=== PATIENT | female | born 1960 | race Two or more races ===

== ENCOUNTER 2018-06-04 13:28 | Outpatient (CLI) | payer OTHER ==
[~2018-06-04 13:28] MED LIST: ADULT ASPIRIN81 MG PO; AVAPRO75 MG PO; CARVEDILOL12.5 MG PO; COZAAR50 MG PO; CYMBALTA30 MG PO; DOLOGESIC 500-1 EACH PO; EXFORGE 5-160 M1 TAB PO; GLUCOPHAGE XR500 MG PO; HUMALOG MIX 75/23 ML SQ; HYZAAR 100/25 T1 TAB PO; LEVOTHROID25 MCG PO; LEVOXYL88 MCG PO; RELAFEN500 MG PO; SIMVASTATIN40 MG PO; SYNTHROID50 MCG PO; VERAPAMIL HCL120 M2 PO; ZETIA10 MG PO
== END 2018-06-04 13:36 | disposition home or self-care (01) ==
LOC: SONOGRAMA 13:28
DX: N60.11 Diffuse cystic mastopathy of right breast (principal); N60.12 Diffuse cystic mastopathy of left breast

== ENCOUNTER → 2018-06-15 | Outpatient (CLI) | payer OTHER | END | disposition home or self-care (01) | LOC: NUCLEAR 09:00 | DX: M79.7 Fibromyalgia (principal) | CPT/HCPCS: 78306; A9503 ==

== ENCOUNTER 2018-07-09 11:05 | Outpatient (CLI) | payer OTHER | END 2018-07-09 11:32 | disposition home or self-care (01) | LOC: TOM 11:05 | DX: E11.9 Type 2 diabetes mellitus without complications (principal); E07.89 Other specified disorders of thyroid; K57.92 Diverticulitis of intestine, part unspecified, without perforation or abscess without bleeding; I10 Essential (primary) hypertension; R10.84 Generalized abdominal pain; I51.9 Heart disease, unspecified ==

== ENCOUNTER 2018-07-19 12:06 | Emergency (ER) | payer OTHER ==
[~2018-07-19] VITALS: Ht 149.9 cm; Wt 77.1 kg
[2018-07-19] MEDS ORDERED: COZAAR25 MG (12:17)
[2018-07-19] MEDS ORDERED: LEVEMIR100 UNIT/1 (12:17)
[2018-07-19] MEDS ORDERED: PROVERA2.5 MG (12:17)
== END 2018-07-19 15:05 | disposition home or self-care (01) ==
LOC: ER 12:06
DX: M17.12 Unilateral primary osteoarthritis, left knee (principal); M25.562 Pain in left knee

== ENCOUNTER 2018-07-29 11:13 | Outpatient (CLI) | payer OTHER ==
[~2018-07-29 11:13] MED LIST changes: +COZAAR25 MG; +LEVEMIR100 UNIT/1; +PROVERA2.5 MG
== END 2018-07-29 11:33 | disposition home or self-care (01) ==
LOC: MRI 11:13
DX: M25.462 Effusion, left knee (principal)
CPT/HCPCS: 73718

== ENCOUNTER 2018-07-31 11:52 | Outpatient (CLI) | payer OTHER | END 2018-08-03 16:42 | disposition home or self-care (01) | LOC: SONOGRAMA 11:52 | DX: E04.2 Nontoxic multinodular goiter (principal) ==

== ENCOUNTER 2018-08-10 13:15 | Outpatient (CLI) | payer OTHER | END 2018-08-10 13:22 | disposition home or self-care (01) | LOC: NUCLEAR 13:15 | DX: M81.0 Age-related osteoporosis without current pathological fracture (principal) ==

== ENCOUNTER 2018-11-23 21:00 | Emergency (ER) | payer OTHER ==
[~2018-11-23] VITALS: Ht 149.9 cm; Wt 74.8 kg
[2018-11-23] MEDS ORDERED: LEVEMIR100 UNIT/1 (21:12)
== END 2018-11-24 10:05 | disposition home or self-care (01) ==
LOC: ER 21:00
DX: M79.662 Pain in left lower leg (principal); M79.661 Pain in right lower leg

== ENCOUNTER → 2018-11-24 | Outpatient (CLI) | payer OTHER | END | disposition home or self-care (01) | LOC: RAD 501 14:16 | DX: M25.561 Pain in right knee (principal); M25.562 Pain in left knee; M54.5 Low back pain ==

== ENCOUNTER 2018-12-11 11:03 | Outpatient (CLI) | payer OTHER ==
[2018-12-16] MEDS ORDERED: HORSE CHESTNUT300 M1 PO (15:11)
[2018-12-16] MEDS ORDERED: ZOCOR20 MG PO (15:11)
== END 2018-12-11 11:47 | disposition home or self-care (01) ==
LOC: NUCLEAR 11:03
DX: I65.23 Occlusion and stenosis of bilateral carotid arteries (principal)

== ENCOUNTER → 2018-12-16 | Outpatient (CLI) | payer OTHER ==
[~2018-12-16] MED LIST changes: +HORSE CHESTNUT300 M1 PO; +ZOCOR20 MG PO
== END | disposition home or self-care (01) ==
LOC: LAB 10:39
DX: I49.8 Other specified cardiac arrhythmias (principal); Z76.89 Persons encountering health services in other specified circumstances; D64.89 Other specified anemias; E88.89 Other specified metabolic disorders; D68.8 Other specified coagulation defects; N39.0 Urinary tract infection, site not specified; Z22.322 Carrier or suspected carrier of Methicillin resistant Staphylococcus aureus

== ENCOUNTER → 2018-12-24 | Outpatient (CLI) | payer OTHER ==
[~2018-12-24] MED LIST changes: +LISINOPR PO
== END | disposition home or self-care (01) ==
LOC: LAB 09:54
DX: D68.8 Other specified coagulation defects (principal)

== ENCOUNTER 2018-12-28 07:33 | Day surgery (SDC) | payer OTHER | END 2018-12-28 15:15 | disposition home or self-care (01) | LOC: CIR.AMB 07:33 | DX: M23.322 Other meniscus derangements, posterior horn of medial meniscus, left knee (principal); M12.262 Villonodular synovitis (pigmented), left knee; M22.12 Recurrent subluxation of patella, left knee; M22.42 Chondromalacia patellae, left knee ==

== ENCOUNTER 2018-12-31 11:35 | Outpatient (CLI) | payer OTHER | END 2018-12-31 11:56 | disposition home or self-care (01) | LOC: RAD 501 11:35 | DX: M17.11 Unilateral primary osteoarthritis, right knee (principal) ==

== ENCOUNTER 2019-01-14 09:35 | Outpatient (CLI) | payer OTHER | END 2019-01-14 09:44 | disposition home or self-care (01) | LOC: RAD 501 09:35 | DX: M25.562 Pain in left knee (principal) ==

== ENCOUNTER 2019-08-31 13:13 | Outpatient (CLI) | payer OTHER | END 2019-08-31 17:01 | disposition home or self-care (01) | LOC: MRI 13:13 | DX: Q28.3 Other malformations of cerebral vessels (principal); I87.8 Other specified disorders of veins | CPT/HCPCS: 70551 ==

== ENCOUNTER 2019-09-07 13:18 | Outpatient (CLI) | payer OTHER ==
[2019-09-07] MEDS ORDERED: ASPIR 8181 MG (21:20)
[2019-09-07] MEDS ORDERED: LIPITOR20 MG (21:21)
[2019-09-07] MEDS ORDERED: PEPCID AC10 MG (21:22)
== END 2019-09-07 14:26 | disposition home or self-care (01) ==
LOC: RAD 13:18 → MAMO-SONO 09-08 13:45
DX: N60.11 Diffuse cystic mastopathy of right breast (principal); N60.12 Diffuse cystic mastopathy of left breast; R07.89 Other chest pain

== ENCOUNTER 2019-09-07 20:57 | Emergency (ER) | payer OTHER ==
[~2019-09-07] VITALS: Ht 149.9 cm; Wt 72.6 kg
[2019-09-07] MEDS ORDERED: ASPIR 8181 MG (21:20)
[2019-09-07] MEDS ORDERED: LIPITOR20 MG (21:21)
[2019-09-07] MEDS ORDERED: PEPCID AC10 MG (21:22)
== END 2019-09-07 23:50 | disposition home or self-care (01) ==
LOC: ER 20:57
DX: T78.1XXA Other adverse food reactions, not elsewhere classified, initial encounter (principal); L29.8 Other pruritus

== ENCOUNTER 2020-06-14 09:38 | Outpatient (CLI) | payer OTHER ==
[~2020-06-14 09:38] MED LIST changes: +ASPIR 8181 MG; +LIPITOR20 MG; +PEPCID AC10 MG
== END 2020-06-14 09:44 | disposition home or self-care (01) ==
LOC: RAD 09:38
PROVIDERS: ATTEND Orthopaedic Surgery Adult Reconstructive Orthopaedic Surgery
DX: E80.4 Gilbert syndrome (principal); M17.12 Unilateral primary osteoarthritis, left knee

== ENCOUNTER 2020-07-10 11:52 | Outpatient (CLI) | payer OTHER | END 2020-07-10 11:54 | disposition home or self-care (01) | LOC: RAD 11:52 | PROVIDERS: ATTEND Orthopaedic Surgery Adult Reconstructive Orthopaedic Surgery | DX: M54.2 Cervicalgia (principal); I11.9 Hypertensive heart disease without heart failure ==

== ENCOUNTER 2020-12-13 10:40 | Outpatient (CLI) | payer OTHER | END 2020-12-13 10:52 | disposition home or self-care (01) | LOC: MAMO-SONO 10:40 | PROVIDERS: ATTEND Specialist | DX: Z12.31 Encounter for screening mammogram for malignant neoplasm of breast (principal); N60.11 Diffuse cystic mastopathy of right breast; N60.12 Diffuse cystic mastopathy of left breast ==

== ENCOUNTER 2021-08-15 10:19 | Outpatient (CLI) | payer OTHER | END 2021-08-15 10:23 | disposition home or self-care (01) | LOC: SONOGRAMA 10:19 | DX: K76.0 Fatty (change of) liver, not elsewhere classified (principal) ==

== ENCOUNTER 2021-08-22 11:14 | Outpatient (CLI) | payer OTHER | END 2021-08-22 11:19 | disposition home or self-care (01) | LOC: RAD 11:14 | PROVIDERS: ATTEND Physical Medicine & Rehabilitation | DX: M54.6 Pain in thoracic spine (principal); M94.0 Chondrocostal junction syndrome [Tietze] ==

== ENCOUNTER 2021-12-31 11:32 | Inpatient (IN) | payer OTHER ==
[~2021-12-31] VITALS: Ht 180.3 cm; Wt 74.4 kg
[2022-01-01] MEDS ORDERED: PANTOPRAZOLE SO40 MG (08:10)
[2022-01-01] MEDS ORDERED: FARXIGA10 MG (08:10)
[2022-01-01] MEDS ORDERED: MONTELUKAST SOD10 MG (08:11)
[2022-01-01] MEDS ORDERED: OMEPRAZOLE20 MG (08:11)
[2022-01-01] MEDS ORDERED: VITAMIN D31250 MCG (08:11)
[2022-01-01] MEDS ORDERED: LANTUS SOL100 UNIT/1 (08:11)
[2022-01-01] MEDS ORDERED: ROSUVASTATIN CA40 MG (08:11)
[2022-01-01] MEDS ORDERED: CANDESARTAN CIL32 MG (08:11)
[2022-01-01] MEDS ORDERED: ST. JOSEPH ASPI81 M2 (08:13)
[2022-01-08] MEDS ORDERED: HYOSCYAMINE0.125 M1 SL (09:04)
[2022-01-08] MEDS ORDERED: CANDESARTAN CIL32 MG PO (09:05)
[2022-01-08] MEDS ORDERED: CARVEDILOL12.5 MG PO (09:06)
[2022-01-08] MEDS ORDERED: FAMOTIDINE20 MG PO (09:07)
[2022-01-08] MEDS ORDERED: GABAPENTIN300 MG PO (09:07)
[2022-01-08] MEDS ORDERED: LEVOTHYROXINE88 MCG PO (09:08)
[2022-01-08] MEDS ORDERED: DELZICOL400 M1 PO (09:08)
== END 2022-01-08 15:04 | disposition home or self-care (01) | DRG 812 ==
LOC: MEDJ 11:32
PROVIDERS: ADMIT Internal Medicine Hematology & Oncology; ATTEND Internal Medicine Hematology & Oncology
PROC: 30243N1 Transfusion of Nonautologous Red Blood Cells into Central Vein, Percutaneous Approach (ICD-10-PCS; principal; 2021-12-31)
PROC: 8E0ZXY6 Isolation (ICD-10-PCS; 2021-12-31)
PROC: 02HV33Z Insertion of Infusion Device into Superior Vena Cava, Percutaneous Approach (ICD-10-PCS; 2021-12-31)
PROC: BW21YZZ Computerized Tomography (CT Scan) of Abdomen and Pelvis using Other Contrast (ICD-10-PCS; 2021-12-31)
PROC: 0WBH3ZX Excision of Retroperitoneum, Percutaneous Approach, Diagnostic (ICD-10-PCS; 2022-01-02)
DX: D62 Acute posthemorrhagic anemia (principal); K50.811 Crohn's disease of both small and large intestine with rectal bleeding; G89.3 Neoplasm related pain (acute) (chronic); C76.3 Malignant neoplasm of pelvis; E86.0 Dehydration; E11.9 Type 2 diabetes mellitus without complications; E03.8 Other specified hypothyroidism; Z79.4 Long term (current) use of insulin
CPT/HCPCS: 240

== ENCOUNTER 2022-01-24 07:57 | Outpatient (CLI) | payer OTHER ==
[~2022-01-24 07:57] MED LIST changes: +CANDESARTAN CIL32 MG; +CANDESARTAN CIL32 MG PO; +DELZICOL400 M1 PO; +FAMOTIDINE20 MG PO; +FARXIGA10 MG; +GABAPENTIN300 MG PO; +HYOSCYAMINE0.125 M1 SL; +LANTUS SOL100 UNIT/1; +LEVOTHYROXINE88 MCG PO; +MONTELUKAST SOD10 MG; +OMEPRAZOLE20 MG; +PANTOPRAZOLE SO40 MG; +ROSUVASTATIN CA40 MG; +ST. JOSEPH ASPI81 M2; +VITAMIN D31250 MCG
== END 2022-01-24 07:58 | disposition home or self-care (01) ==
LOC: NUCLEAR 07:57
PROVIDERS: ATTEND Surgery
DX: C80.0 Disseminated malignant neoplasm, unspecified (principal); C18.9 Malignant neoplasm of colon, unspecified; R14.0 Abdominal distension (gaseous); R93.5 Abnormal findings on diagnostic imaging of other abdominal regions, including retroperitoneum; R14.1 Gas pain

== ENCOUNTER 2022-02-12 12:15 | Inpatient (IN) | payer OTHER ==
[~2022-02-12] VITALS: Ht 149.9 cm; Wt 68.0 kg
[2022-02-14] MEDS ORDERED: METOCLOPRAMIDE10 MG (10:29)
[2022-02-14] MEDS ORDERED: VITAMIN D31250 MCG (10:30)
[2022-02-14] MEDS ORDERED: ROSUVASTATIN CA40 MG (10:30)
[2022-02-24] MEDS ORDERED: ULTRACET PO (10:47)
[2022-02-24] MEDS ORDERED: SIMETHICONE80 MG PO (10:47)
[2022-02-24] MEDS ORDERED: INTESTINEX680 M1 PO (10:47)
[2022-02-24] MEDS ORDERED: LEVOFLOXACIN750 MG PO (10:47)
== END 2022-02-24 16:50 | disposition home or self-care (01) | DRG 330 ==
LOC: O/R 02-14 06:43 → SURG 02-14 06:43 → SURH 02-14 07:00 → SURG 02-14 13:49
PROVIDERS: Obstetrics & Gynecology Gynecologic Oncology; ADMIT Surgery; ATTEND Surgery
PROC: 0DTB0ZZ Resection of Ileum, Open Approach (ICD-10-PCS; 2022-02-14)
PROC: 07TC0ZZ Resection of Pelvis Lymphatic, Open Approach (ICD-10-PCS; 2022-02-14)
PROC: 0WBH0ZX Excision of Retroperitoneum, Open Approach, Diagnostic (ICD-10-PCS; 2022-02-14)
PROC: 0UT20ZZ Resection of Bilateral Ovaries, Open Approach (ICD-10-PCS; 2022-02-14)
PROC: 0UT70ZZ Resection of Bilateral Fallopian Tubes, Open Approach (ICD-10-PCS; 2022-02-14)
PROC: 0DBW0ZZ Excision of Peritoneum, Open Approach (ICD-10-PCS; 2022-02-14)
PROC: 0DTK0ZZ Resection of Ascending Colon, Open Approach (ICD-10-PCS; principal; 2022-02-14 07:00)
PROC: 0DJD4ZZ Inspection of Lower Intestinal Tract, Percutaneous Endoscopic Approach (ICD-10-PCS; 2022-02-14 07:00)
PROC: 02HV33Z Insertion of Infusion Device into Superior Vena Cava, Percutaneous Approach (ICD-10-PCS; 2022-02-17)
DX: C18.0 Malignant neoplasm of cecum (principal); C79.62 Secondary malignant neoplasm of left ovary; Z20.822 Contact with and (suspected) exposure to COVID-19; N83.292 Other ovarian cyst, left side; E11.9 Type 2 diabetes mellitus without complications; G89.3 Neoplasm related pain (acute) (chronic); I10 Essential (primary) hypertension

== ENCOUNTER 2022-04-04 06:54 | Day surgery (SDC) | payer OTHER ==
[~2022-04-04] VITALS: Ht 149.9 cm; Wt 73.5 kg
[~2022-04-04 06:54] MED LIST changes: +INTESTINEX680 M1 PO; +LEVOFLOXACIN750 MG PO; +METOCLOPRAMIDE10 MG; +SIMETHICONE80 MG PO; +ULTRACET PO
[2022-04-04] MEDS ORDERED: ULTRACET PO (09:59)
== END 2022-04-04 12:30 | disposition home or self-care (01) ==
LOC: CIR.AMB 06:54
PROVIDERS: ATTEND Surgery
DX: C18.9 Malignant neoplasm of colon, unspecified (principal); Z91.013 Allergy to seafood; Z88.0 Allergy status to penicillin; R97.0 Elevated carcinoembryonic antigen [CEA]; C80.0 Disseminated malignant neoplasm, unspecified; Z20.822 Contact with and (suspected) exposure to COVID-19; Z88.8 Allergy status to other drugs, medicaments and biological substances; Z91.041 Radiographic dye allergy status

== ENCOUNTER → 2022-04-12 | Outpatient (CLI) | payer OTHER | END | disposition home or self-care (01) | LOC: RAD 11:31 | PROVIDERS: ATTEND Surgery | DX: C18.9 Malignant neoplasm of colon, unspecified (principal); R14.0 Abdominal distension (gaseous); R93.5 Abnormal findings on diagnostic imaging of other abdominal regions, including retroperitoneum; R14.1 Gas pain; R19.7 Diarrhea, unspecified; C80.0 Disseminated malignant neoplasm, unspecified; R97.0 Elevated carcinoembryonic antigen [CEA] ==

== ENCOUNTER → 2022-05-06 | Emergency (ER) | payer OTHER | END | disposition left against medical advice (07) | LOC: ER 00:55 | DX: Z53.21 Procedure and treatment not carried out due to patient leaving prior to being seen by health care provider (principal) ==

== ENCOUNTER 2022-05-07 08:08 | Outpatient (CLI) | payer OTHER | END 2022-05-07 08:28 | disposition home or self-care (01) | LOC: MRI 08:08 → TOM 08:08 | PROVIDERS: ATTEND Internal Medicine Hematology & Oncology | DX: C18.0 Malignant neoplasm of cecum (principal); C79.51 Secondary malignant neoplasm of bone; K92.2 Gastrointestinal hemorrhage, unspecified ==

== ENCOUNTER 2022-06-26 13:09 | Outpatient (CLI) | payer OTHER | END 2022-06-26 13:23 | disposition home or self-care (01) | LOC: MAMO-SONO 13:09 | PROVIDERS: ATTEND Obstetrics & Gynecology | DX: N60.11 Diffuse cystic mastopathy of right breast (principal); N60.12 Diffuse cystic mastopathy of left breast ==

== ENCOUNTER → 2022-08-12 | Outpatient (CLI) | payer OTHER | END | disposition home or self-care (01) | LOC: NUCLEAR 08:00 | PROVIDERS: ATTEND Surgery | DX: C18.9 Malignant neoplasm of colon, unspecified (principal); C80.0 Disseminated malignant neoplasm, unspecified; R14.0 Abdominal distension (gaseous); R93.5 Abnormal findings on diagnostic imaging of other abdominal regions, including retroperitoneum; R14.1 Gas pain; R19.7 Diarrhea, unspecified; R97.0 Elevated carcinoembryonic antigen [CEA]; Z88.0 Allergy status to penicillin; Z88.8 Allergy status to other drugs, medicaments and biological substances; Z88.5 Allergy status to narcotic agent; Z91.013 Allergy to seafood | CPT/HCPCS: 78816; A9552 ==

== ENCOUNTER 2022-12-30 14:58 | Outpatient (CLI) | payer OTHER | END 2022-12-30 15:09 | disposition home or self-care (01) | LOC: SONOGRAMA 14:58 | PROVIDERS: ATTEND Surgery | DX: N60.11 Diffuse cystic mastopathy of right breast (principal); N60.12 Diffuse cystic mastopathy of left breast ==

== ENCOUNTER 2023-05-13 14:57 | Emergency (ER) | payer OTHER ==
[~2023-05-13] VITALS: Ht 149.9 cm; Wt 56.2 kg
[2023-05-13] MEDS ORDERED: CAPECITABINE500 MG PO (15:36)
[2023-05-13] MEDS ORDERED: CAMPTOSAR100 MG/5 M IV (15:38)
== END 2023-05-13 22:37 | disposition home or self-care (01) ==
LOC: ER 14:57
PROVIDERS: Emergency Medicine
DX: C18.9 Malignant neoplasm of colon, unspecified (principal); K52.9 Noninfective gastroenteritis and colitis, unspecified

== ENCOUNTER 2023-06-09 13:06 | Inpatient (IN) | payer OTHER ==
[~2023-06-09] VITALS: Ht 157.5 cm; Wt 61.2 kg
[~2023-06-09 13:06] MED LIST changes: +CAMPTOSAR100 MG/5 M IV; +CAPECITABINE500 MG PO
== END 2023-06-17 19:46 | disposition home or self-care (01) | DRG 394 ==
LOC: ER 13:06 → SEC-K 18:26 → SURH 18:26
PROVIDERS: ADMIT Internal Medicine Hematology & Oncology; ATTEND Internal Medicine Hematology & Oncology
PROC: BW21ZZZ Computerized Tomography (CT Scan) of Abdomen and Pelvis (ICD-10-PCS; 2023-06-09)
PROC: 02HV33Z Insertion of Infusion Device into Superior Vena Cava, Percutaneous Approach (ICD-10-PCS; principal; 2023-06-11)
PROC: B54MZZZ Ultrasonography of Right Upper Extremity Veins (ICD-10-PCS; 2023-06-16)
DX: K52.1 Toxic gastroenteritis and colitis (principal); C18.2 Malignant neoplasm of ascending colon; N17.9 Acute kidney failure, unspecified; C79.61 Secondary malignant neoplasm of right ovary; C78.6 Secondary malignant neoplasm of retroperitoneum and peritoneum; T45.1X5A Adverse effect of antineoplastic and immunosuppressive drugs, initial encounter; E86.0 Dehydration; E87.6 Hypokalemia; E11.9 Type 2 diabetes mellitus without complications; I10 Essential (primary) hypertension; E03.9 Hypothyroidism, unspecified; Z79.4 Long term (current) use of insulin

== ENCOUNTER 2023-08-01 10:48 | Outpatient (CLI) | payer OTHER | END 2023-08-01 10:54 | disposition home or self-care (01) | LOC: MAMO-SONO 10:48 | PROVIDERS: ATTEND Internal Medicine Hematology & Oncology | DX: Z12.31 Encounter for screening mammogram for malignant neoplasm of breast (principal) ==

== ENCOUNTER 2023-09-04 07:39 | Outpatient (CLI) | payer OTHER | END 2023-09-04 07:40 | disposition home or self-care (01) | LOC: NUCLEAR 07:39 | PROVIDERS: ATTEND Internal Medicine Hematology & Oncology | DX: C18.9 Malignant neoplasm of colon, unspecified (principal) ==

== ENCOUNTER 2023-09-24 09:19 | Inpatient (IN) | payer OTHER ==
[~2023-09-24] VITALS: Ht 162.6 cm; Wt 72.6 kg
[2023-09-24] MEDS ORDERED: CARVEDILOL12.5 M1 (10:02)
[2023-09-24] MEDS ORDERED: LANTUS SOL100 UNIT/1 (10:03)
[2023-09-24] MEDS ORDERED: TIROSINT88 MCG (10:03)
[2023-09-24 12:59] LABS: ALBUMIN 3.7 gm/dL (3.4-5.0); BILIRUBIN TOTAL 1.88 mg/dL (0.3-1.2); BILIRUBIN,CONJUGATED 0.34 mg/dL (0.0-0.2); BILIRUBIN,UNCONJUGATED 1.54 mg/dL (0.0-0.6); CALCIUM 9.3 mg/dL (8.5-10.1); CREATININE SERUM 0.64 mg/dL (0.55-1.02); GFR 93.42; POTASSIUM 4.07 mEq/L (3.5-5.1); TOTAL PROTEIN 8.5 gm/dL (6.4-8.2)
[2023-09-24 15:39] LABS: HEMATOCRIT 39.2 % (36.0-45.00); HEMOGLOBIN 13.3 g/dL (12.0-15.00); MEAN CELL VOLUME 87.4 fL (80.00-100.00); MEAN CORPUSCULAR HEMOGLOBIN 29.5 pg (27.00-32.0); MEAN CORPUSCULAR HGB CONC 33.8 g/dl (32.0-36.0); RED BLOOD COUNT 4.49 M/uL (4.00-6.00); RED CELL DISTRIBUTION WIDTH 12.9 % (11.5-14.5)
[2023-09-24 15:44] LABS: PLATELET COUNT 128 K/uL (150-450)
[2023-09-24 15:49] LABS: URINE APPEARANCE Cloudy; URINE BILIRRUBIN Small (NEGATIVE); URINE BLOOD Negative; URINE COLOR Dark Yellow; URINE GLUCOSE Negative (NEGATIVE); URINE LEUKOCYTE Trace; URINE NITRATE Negative
[2023-09-24 15:50] LABS: URINE BACTERIA 118.4 uL (0.0-1933); URINE EPITHELIAL CELLS 40.9 uL (0.0-38.8); URINE RBC 26.8 uL (0.0-20.8); URINE WBC 10.2 uL (0.0-23.2)
[2023-09-24 16:02] LABS: URINE PROTEIN 300 (NEGATIVE)
[2023-09-24 16:03] LABS: URINE CRYSTALS FEW /HPF; URINE MUCUS MODERATE
[2023-09-25 08:35] LABS: INR 1.12; PARTIAL THROMBOPLASTIN TIME 24.7 SECONDS (22.0-34.0)
[2023-09-25 08:40] LABS: HEMATOCRIT 35.3 % (36.0-45.00); HEMOGLOBIN 12.2 g/dL (12.0-15.00); MEAN CELL VOLUME 87.4 fL (80.00-100.00); MEAN CORPUSCULAR HEMOGLOBIN 30.1 pg (27.00-32.0); MEAN CORPUSCULAR HGB CONC 34.4 g/dl (32.0-36.0); RED BLOOD COUNT 4.04 M/uL (4.00-6.00); RED CELL DISTRIBUTION WIDTH 13.1 % (11.5-14.5)
[2023-09-25 08:46] LABS: PROTHROMBIN TIME 11.7 SECONDS (9.0-11.5)
[2023-09-25 08:48] LABS: PLATELET COUNT 140 K/uL (150-450)
[2023-09-25 09:07] LABS: ALBUMIN 3.2 gm/dL (3.4-5.0); BILIRUBIN TOTAL 2.04 mg/dL (0.3-1.2); CALCIUM 8.5 mg/dL (8.5-10.1); CREATININE SERUM 0.62 mg/dL (0.55-1.02); GFR 96.91; GLOBULINA 3.4 G/DL (2.4-3.5); MAGNESIUM 1.7 mg/dL (1.8-2.4); PHOSPHOROUS 2.8 mg/dL (2.5-4.9); POTASSIUM 3.8 mEq/L (3.5-5.1); TOTAL PROTEIN 6.6 gm/dL (6.4-8.2)
[2023-09-25 09:30] LABS: C-REACTIVE PROTEIN 2.93 MG/DL (0.00-0.29)
[2023-09-27] MEDS ORDERED: HYOSCYAMINE0.125 M1 SL (12:24)
[2023-09-27] MEDS ORDERED: MEPERIDINE IV (12:28)
== END 2023-09-27 15:17 | disposition home or self-care (01) | DRG 389 ==
LOC: ER 09:19 → SURH 18:58
PROVIDERS: General Practice; ADMIT Internal Medicine Hematology & Oncology; ATTEND Internal Medicine Hematology & Oncology
PROC: BW21ZZZ Computerized Tomography (CT Scan) of Abdomen and Pelvis (ICD-10-PCS; principal; 2023-09-24)
DX: K56.600 Partial intestinal obstruction, unspecified as to cause (principal); C18.0 Malignant neoplasm of cecum; N39.0 Urinary tract infection, site not specified; E86.0 Dehydration; G89.3 Neoplasm related pain (acute) (chronic); I10 Essential (primary) hypertension

== ENCOUNTER 2024-01-09 12:51 | Outpatient (CLI) | payer OTHER ==
[~2024-01-09 12:51] MED LIST changes: +CARVEDILOL12.5 M1; +MEPERIDINE IV; +TIROSINT88 MCG
== END 2024-01-09 13:09 | disposition home or self-care (01) ==
LOC: SONOGRAMA 12:51
PROVIDERS: ATTEND Internal Medicine Hematology & Oncology
DX: R22.2 Localized swelling, mass and lump, trunk (principal)

== ENCOUNTER 2024-02-23 08:31 | Outpatient (CLI) | payer OTHER | END 2024-02-23 08:32 | disposition home or self-care (01) | LOC: NUCLEAR 08:31 | PROVIDERS: ATTEND Internal Medicine Hematology & Oncology | DX: C18.9 Malignant neoplasm of colon, unspecified (principal); C18.2 Malignant neoplasm of ascending colon ==

== ENCOUNTER 2024-05-13 13:31 | Outpatient (CLI) | payer OTHER | END 2024-05-13 14:18 | disposition home or self-care (01) | LOC: RAD 13:31 | PROVIDERS: ATTEND Internal Medicine Hematology & Oncology | DX: C18.2 Malignant neoplasm of ascending colon (principal); C79.61 Secondary malignant neoplasm of right ovary; Z20.822 Contact with and (suspected) exposure to COVID-19; U07.1 COVID-19 ==

== ENCOUNTER 2024-05-28 13:49 | Outpatient (CLI) | payer OTHER | END 2024-05-28 13:57 | disposition home or self-care (01) | LOC: TOM 13:49 | PROVIDERS: ATTEND Internal Medicine Hematology & Oncology | DX: C18.2 Malignant neoplasm of ascending colon (principal); C79.61 Secondary malignant neoplasm of right ovary; C18.9 Malignant neoplasm of colon, unspecified ==

== ENCOUNTER 2024-06-22 07:41 | Outpatient (CLI) | payer OTHER | END 2024-06-22 07:44 | disposition home or self-care (01) | LOC: TOM 07:41 | PROVIDERS: ATTEND Internal Medicine Hematology & Oncology | DX: C18.2 Malignant neoplasm of ascending colon (principal); C79.61 Secondary malignant neoplasm of right ovary ==

== ENCOUNTER 2024-08-13 12:13 | Outpatient (CLI) | payer OTHER | END 2024-08-13 12:29 | disposition home or self-care (01) | LOC: MAMO-SONO 12:13 | PROVIDERS: ATTEND Internal Medicine Hematology & Oncology | DX: C18.2 Malignant neoplasm of ascending colon (principal); Z12.31 Encounter for screening mammogram for malignant neoplasm of breast ==

== ENCOUNTER 2024-09-10 08:10 | Outpatient (CLI) | payer OTHER | END 2024-09-10 08:11 | disposition home or self-care (01) | LOC: NUCLEAR 08:10 | PROVIDERS: ATTEND Internal Medicine Hematology & Oncology | DX: C18.2 Malignant neoplasm of ascending colon (principal); C79.61 Secondary malignant neoplasm of right ovary ==

== ENCOUNTER 2024-09-24 13:51 | Outpatient (CLI) | payer OTHER | END 2024-09-24 13:54 | disposition home or self-care (01) | LOC: SONOGRAMA 13:51 | DX: R31.9 Hematuria, unspecified (principal); R80.1 Persistent proteinuria, unspecified ==

== ENCOUNTER 2024-09-25 18:15 | Emergency (ER) | payer OTHER ==
[~2024-09-25] VITALS: Ht 157.5 cm; Wt 47.2 kg
[2024-09-25] MEDS ORDERED: 0.9 % SODIUM CHLORIDE 500 ML IV ONE (20:00)
[2024-09-25 22:18] LABS: HEMATOCRIT 31.2 % (36.0-45.00); HEMOGLOBIN 10.6 g/dL (12.0-15.00); MEAN CELL VOLUME 89.5 fL (80.00-100.00); MEAN CORPUSCULAR HEMOGLOBIN 30.5 pg (27.00-32.0); MEAN CORPUSCULAR HGB CONC 34.1 g/dl (32.0-36.0); RED BLOOD COUNT 3.49 M/uL (4.00-6.00); RED CELL DISTRIBUTION WIDTH 13.6 % (11.5-14.5)
[2024-09-25 22:21] LABS: PLATELET COUNT 122 K/uL (150-450)
[2024-09-25 22:46] LABS: ALBUMIN 3.4 gm/dL (3.4-5.0); BILIRUBIN TOTAL 1.76 mg/dL (0.3-1.2); CALCIUM 9.3 mg/dL (8.5-10.1); CREATININE SERUM 1.06 mg/dL (0.55-1.02); GFR 52.02; GLOBULINA 4.1 G/DL (2.4-3.5); POTASSIUM 3.89 mEq/L (3.5-5.1); TOTAL PROTEIN 7.5 gm/dL (6.4-8.2)
[2024-09-25 22:47] LABS: INR 1.02; PARTIAL THROMBOPLASTIN TIME 25.4 SECONDS (22.0-34.0); PROTHROMBIN TIME 11.1 SECONDS (9.0-11.5)
[2024-09-26 01:49] LABS: PH,URINE 5.5 (5.0-8.0); URINE APPEARANCE Clear; URINE BILIRRUBIN Negative (NEGATIVE); URINE BLOOD Large; URINE COLOR Yellow; URINE GLUCOSE Negative (NEGATIVE); URINE KETONE Negative (NEGATIVE); URINE LEUKOCYTE Negative; URINE NITRATE Negative; URINE PROTEIN Negative (NEGATIVE); URINE UROBILINOGEN 0.2 E.U./dl
[2024-09-26 01:52] LABS: URINE BACTERIA 12.5 uL (0.0-1933); URINE EPITHELIAL CELLS 4.7 uL (0.0-38.8); URINE RBC 28.5 uL (0.0-20.8); URINE WBC 4.3 uL (0.0-23.2)
== END 2024-09-26 03:05 | disposition home or self-care (01) ==
LOC: ER 18:17
PROVIDERS: Nurse Practitioner Family
DX: R31.9 Hematuria, unspecified (principal); R10.2 Pelvic and perineal pain; Z85.038 Personal history of other malignant neoplasm of large intestine; Z85.43 Personal history of malignant neoplasm of ovary; Z85.42 Personal history of malignant neoplasm of other parts of uterus; Z91.013 Allergy to seafood; Z88.0 Allergy status to penicillin; Z91.041 Radiographic dye allergy status; M79.7 Fibromyalgia; Z87.442 Personal history of urinary calculi; I10 Essential (primary) hypertension; E11.9 Type 2 diabetes mellitus without complications

== ENCOUNTER 2025-06-24 10:52 | Emergency (ER) | payer OTHER ==
[~2025-06-24] VITALS: Ht 152.4 cm; Wt 37.2 kg
[2025-06-24] MEDS ORDERED: 0.9 % SODIUM CHLORIDE 1,000 ML IV SCH (12:30)
[2025-06-24 12:58] LABS: BASO % 0.0 % (0.1-1.2); EOS # 0.01 (0.04-0.54); EOS % 1.0 % (0.7-7.0); LYMPH # 0.57 (1.18-3.74); LYMPH % 55.3 % (19.3-53.1); MEAN PLATELET VOLUME 9.60 fl (9.4-12.4); MONO # 0.06 (0.24-0.82); MONO % 5.8 % (4.7-12.5); NEUT # 0.39 (1.56-6.13); NEUT % 37.9 % (34.0-71.1); RED CELL DISTRIBUTION WIDTH 13.8 % (11.6-14.4)
[2025-06-24 13:32] LABS: INR 1.1
[2025-06-24 13:42] LABS: COVID-19 AG NEGATIVE (NEGATIVE)
[2025-06-24 13:46] LABS: ALT/SGPT 12.0 U/L (12-78); AST/SGOT 10.0 U/L (15-37); BILIRUBIN TOTAL 0.71 mg/dL (0.3-1.2); BILIRUBIN,CONJUGATED 0.2 mg/dL (0.0-0.2); BUN CREA RATIO 15.0 (7.0-25.0); CREATININE SERUM 0.78 mg/dL (0.55-1.02); GFR 74.12; GLOBULINA 4.5 G/DL (2.4-3.5); GLUCOSE FASTING 101.0 mg/dL (65-100); OSMOLALITY SERUM 274.0 MOSM/KG (275-295)
[2025-06-24 18:04] LABS: URINE APPEARANCE Cloudy; URINE BILIRRUBIN Negative (NEGATIVE); URINE BLOOD Large; URINE COLOR Yellow; URINE GLUCOSE Negative (NEGATIVE); URINE KETONE Trace (NEGATIVE); URINE LEUKOCYTE Moderate; URINE NITRATE Negative; URINE PROTEIN 30 (NEGATIVE); URINE UROBILINOGEN 0.2 E.U./dl
[2025-06-24 18:08] LABS: URINE BACTERIA 925.1 uL (0.0-1933); URINE EPITHELIAL CELLS 43.3 uL (0.0-38.8); URINE RBC 55.5 uL (0.0-20.8); URINE WBC 339.0 uL (0.0-23.2)
[2025-06-24 18:20] LABS: URINE CAST 1.02 uL (0.0-1.40)
== END 2025-06-24 21:32 | disposition home or self-care (01) ==
LOC: ER 10:52
PROVIDERS: Emergency Medicine
DX: E86.0 Dehydration (principal); R19.7 Diarrhea, unspecified; Z20.822 Contact with and (suspected) exposure to COVID-19; Z85.038 Personal history of other malignant neoplasm of large intestine; Z88.0 Allergy status to penicillin; Z88.8 Allergy status to other drugs, medicaments and biological substances